=== PATIENT | female | born 1995 | race American Indian/Alaskan Native ===

== ENCOUNTER 2017-04-06 20:40 | Emergency (ER) | payer MEDICAID ==
[2017-04-06 20:51] VITALS: BP 144/77
--- NOTE | 2017-04-06 21:32 | EDM.PDOC ---
[id number] SINUSES,THROAT,SOB, [id number] Time Seen by Provider: 04/06/17 21:15 Source of Information: Reports: Patient History Limitations: Reports: No Limitations - History of Present Illness INITIAL COMMENTS - FREE TEXT/NARRATIVE: C/O sinus congestion and pressure past 3-4 days. No fever or chills, Green nasal drainage, SOB with congestion. Sore throat. Decreased appetite but drinking lots of fluid. Occasional cough with post nasal drainage. 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 OB/BYN History: 3rd Musculoskeletal History: Reports: None Neurological History: Reports: None Psychiatric History: Reports: None Endocrine/Metabolic History: Reports: Diabetes, Gestational Hematologic History: Reports: None Immunologic History: Reports: None Oncologic (Cancer) History: Reports: None Dermatologic History: Reports: None - Infectious Disease History Infectious Disease History: Reports: None - Past Surgical History Head Surgeries/Procedures: Reports: None Social & Family History - Family History Family Medical History: Noncontributory - Tobacco Use Smoking Status *Q: Never Smoker Years of Tobacco use: 2 Packs/Tins Daily: 0.2 Used Tobacco, but Quit: No Month Tobacco Last Used: Second Hand Smoke Exposure: No - Caffeine Use Caffeine Use: Reports: None - Alcohol Use Days Per Week of Alcohol Use: 0 - Recreational Drug Use Recreational Drug Use: No - Living Situation & Occupation Living situation: Reports: with Significant Other Occupation: Employed ED ROS GENERAL - Review of Systems Review Of Systems: See Below Constitutional: Reports: Decreased Appetite. Denies: Fever, Chills HEENT: Reports: Rhinitis, Sinus Problem, Throat Pain Respiratory: Reports: Shortness of Breath, Cough Cardiovascular: Reports: No Symptoms GI/Abdominal: Reports: No Symptoms : Reports: Other (14 weeks ) Musculoskeletal: Reports: No Symptoms Skin: Reports: No Symptoms Neurological: Reports: No Symptoms ED EXAM, GENERAL - Physical Exam Exam: See Below Exam Limited By: No Limitations General Appearance: Alert, Mild Distress Eye Exam: Bilateral Eye: EOMI Ear Exam: Bilateral Ear: TM normal Nose: Nasal Drainage (green) Throat/Mouth: Other (mild posterior pharnyx erythema) Head: Atraumatic, Normocephalic, Facial Tenderness (frontal and ethmoid sinus tenderness with palpation) Neck: Full Range of Motion, Lymphadenopathy (L), Lymphadenopathy (R) Respiratory/Chest: No Respiratory Distress, Decreased Breath Sounds (ases). No : Crackles, Rales, Rhonchi, Wheezing Cardiovascular: Normal Peripheral Pulses, Regular Rate, Rhythm, Other (tachy on admission decreased 90 with exam) Extremities: Normal Inspection Neurological: Alert, Oriented, Normal Cognition Skin Exam: Warm, Dry, Intact, Normal Color Course - Vital Signs Last Recorded V/S: Last Vital Signs Temp 98.9 F 04/06/17 20:48 Pulse 120 H 04/06/17 20:48 Resp 18 04/06/17 20:48 BP 144/77 H 04/06/17 20:48 Pulse Ox 97 04/06/17 20:48 - Orders/Labs/Meds Orders: Active Orders 24 hr Category Date Time Status CULTURE STREP A CONFIRMATION [RM] Stat Lab 04/06/17 20:47 Results STREP SCRN A RAPID W CULT CONF [] Stat Lab 04/06/17 20:47 Results Departure - Departure Time of Disposition: 21:29 Disposition: Home, Self-Care 01 Condition: good Clinical Impression: 14 weeks gestation of Sinusitis Qualifiers: Sinusitis location: pansinusitis Chronicity: acute Recurrence: not specified as recurrent Qualified Code(s): J01.40 - Acute pansinusitis, unspecified - Discharge Information Instructions: Sinusitis, Adult, [id number] Referrals: Hazel Nielsen MD [Primary Care Provider] - Forms: ED Department Discharge Additional Instructions: increase fluids humidification amoxicillin 500mg one three times daily for one week follow up if symptoms worsen may use tylenol for fever or discomfort avoid any use of ibuprofen - My Orders Last 24 Hours: My Active Orders 04/06/17 20:47 CULTURE STREP A CONFIRMATION [RM] Stat STREP SCRN A RAPID W CULT CONF [] Stat - Assessment/Plan Last 24 Hours: My Active Orders 04/06/17 20:47 CULTURE STREP A CONFIRMATION [RM] Stat STREP SCRN A RAPID W CULT CONF [RM] Stat
== END 2017-04-06 21:36 | disposition home or self-care (01) ==
LOC: DL.ED 20:40
DX: O99.52 Diseases of the respiratory system complicating childbirth (principal); J01.40 Acute pansinusitis, unspecified; Z3A.14 14 weeks gestation of pregnancy
CPT/HCPCS: 87081; 87430; 99283

== ENCOUNTER 2017-09-16 06:00 | Inpatient (IN) | payer MEDICAID ==
[2017-09-16] MEDS ORDERED: Sodium Chloride 0.9% 10 ML Syringe FLUSH PRN (06:56)
[2017-09-16] MEDS ORDERED: Acetaminophen 325 MG Tab PO PRN (06:56)
[2017-09-16] MEDS ORDERED: Methylergonovine 0.2 MG/1 ML Amp IM PRN (06:56)
[2017-09-16] MEDS ORDERED: Carboprost Tromethamine 250 MCG/1 ML Amp IM PRN (06:56)
[2017-09-16] MEDS ORDERED: Ondansetron 4 MG/2 ML SDV IV PRN (06:56)
[2017-09-16] MEDS ORDERED: Lidocaine 1% 30 ML SDV INJECT PRN (06:56)
[2017-09-16] MEDS ORDERED: Lactated Ringers 500 ML IV ONE (06:56)
[2017-09-16] MEDS ORDERED: Misoprostol 400 MCG (4 X 100 MCG TAB) RECTAL PRN (06:56)
[2017-09-16] MEDS: Lactated Ringers 1,000 ML IV SCH ×3 (07:09→10:35)
--- NOTE | 2017-09-16 08:16 | HP ---
CHIEF COMPLAINT: Increased force and frequency of contractions. HISTORY OF PRESENT ILLNESS: A 22-year-old, 3, para 2-0-0-2, currently at 37 and 2/7 weeks based on last menstrual period. The patient has gestational diabetes that is diet controlled. No other major risk factors. Reports contractions started around 03:00 this morning and have progressively gotten stronger. Around that time, she also had some bloody show which has continued. She has had good movement. No symptoms of preeclampsia. No other acute concerns have been noted. HISTORY: 1. On 10/21/2013, at 39 weeks 0 days' gestation, spontaneous vaginal delivery of her son Josemanuel. weight 3969 g with intrathecal for anesthesia, 6.5 hours of stage I, 19 minutes of stage II, had gestational diabetes. Delivery was performed by Dr. Castillo for Dr. Amato. 2. On 07/09/2016, at 38 weeks 4 days gestation, female , named Jennifer, spontaneous vaginal delivery, weighing 4026 g, female infant with intrathecal anesthesia. scores of 8 and 9. This is an induction of labor because of oligohydramnios on biophysical profile. She had gestational diabetes with this and was on medications as well. Delivery was again performed by Dr. Castillo for Lm Dash. LABS: Blood type O positive. She is rubella immune. Syphilis nonreactive. Hepatitis B, HIV, hepatitis C all negative. Gonorrhea and chlamydia negative. She was treated for clue cells in the first trimester. Quad screen was normal. Group B strep is negative. She has had her Tdap and influenza vaccines. records reviewed in their entirety. PAST MEDICAL HISTORY: 1. Allergy to nickel. 2. History of lip and ear piercing's. 3. History of breast mass removed. 4. History of chickenpox. 5. History of eczema. 6. History of gestational diabetes with pregnancies x3. 7. Irregular menstrual cycles. 8. Lichen simplex. 9. Obesity. 10.She has a couple of tattoos. PAST SURGICAL HISTORY: 1. Left-sided breast lumpectomy. 2. Laparoscopic cholecystectomy. FAMILY HISTORY: Father with hypertension and hyperlipidemia. Mother with cervical cancer in her late 20s. Maternal grandfather with diabetes. Paternal grandfather also with diabetes. Paternal grandfather's sister has cancer. Paternal aunt has diabetes and from complications of it. Breast cancer in several family members on the paternal side. Lung cancer in several family members on the paternal side, even in the nonsmokers. Liver cancer in a great aunt which was non-alcohol related. There are no defects, multiples, anesthesia problems, bleeding problems, clotting disorders, seizures, or cystic fibrosis. SOCIAL HISTORY: The patient is to Josemanuel. They have 2 children together already. The patient is a former smoker and quit in February of 2017. She is going to college to get her business administration degree. Her works for [employer]. They do have family in the area that is supportive. ALLERGIES: None. MEDICATIONS: vitamin 1 daily. REVIEW OF SYSTEMS: As noted under history of present illness. No fevers, chills, nausea, vomiting, diarrhea, constipation, chest pain, shortness of breath, skin rash, new headaches, or other concerns. PHYSICAL EXAMINATION: Vital Signs: Blood pressure 130/76, pulse of 86, temperature is 98.1. HEENT: Unremarkable. Heart: Regular without obvious murmur. Lungs: Clear to auscultation bilaterally. Abdomen: Gravid. [place] showing contractions approximately every 4 minutes. monitoring strip baseline heart rate 150 beats per minute with moderate [id number] variability. Accelerations are noted, overall category 1. Cervix is 5 cm dilated, 90% effaced. Bag of water was intact and ruptured with Amnio Hook and return of clear fluid noted. Baby is vertex. Extremities: No edema, erythema, or tenderness noted. Neurological: No obvious deficits. ASSESSMENT: 1. A 37 and 2/7 weeks intrauterine in active labor in a 3, para 2-0-0-2. 2. Gestational diabetes, diet controlled. 3. History of bacterial vaginosis in the first trimester. PLAN: The patient will be admitted to the hospital at this time. Continue with active labor management and anticipate vaginal delivery. She does have a history of one macrosomic infant, and we will see how she does, but has had successful deliveries in the past. [facility] /[id number] MONIKA
[2017-09-16] MEDS ORDERED: fentaNYL 100 MCG/2 ML SDV IVPUSH ONE (09:16)
[2017-09-16] MEDS ORDERED: fentaNYL 100 MCG/2 ML SDV ONE (09:40)
--- NOTE | 2017-09-16 10:09 | PCM.SN ---
- Free Text/Narrative Note: Intrathecal. Sitting position, sterile prep and drape. 1% lidocaine w bicarb for skinwheal to L2 L3 interspace x 2. Introducer x 3. Pos CSF, neg heme, neg parasthesia. 15 mcg PF sufenta, 35 mcg PF fentanyl, 0.4 m PF NS and 6 mg of 0.75 % PF bupivacaine injected after CSF aspiration. Pt to L lateral side. Procedure time [id number]
[2017-09-16] MEDS: Oxytocin/Normal Saline 30 UNIT/500 ML BAG IV SCH ×2 (12:06→19:19)
[2017-09-16] MEDS ORDERED: Zolpidem 5 MG Tab PO PRN (12:19)
[2017-09-16] MEDS ORDERED: Benzocaine/Menthol 20%-0.5% Spray 56 GM Canister TOP PRN (12:19)
[2017-09-16] MEDS ORDERED: Simethicone 80 MG Tab.Chew PO PRN (12:19)
[2017-09-16] MEDS: Ibuprofen 800 MG Tab PO PRN ×2 (13:42→23:33)
[2017-09-16] MEDS: Acetaminophen 325 MG Tab PO PRN (13:43)
[2017-09-16] MEDS ORDERED: fentaNYL 100 MCG/2 ML SDV ITHECAL ONE (16:13)
[2017-09-16] MEDS: Docusate Sodium 100 MG Cap PO PRN (21:50)
[2017-09-17] MEDS: Acetaminophen 325 MG Tab PO PRN ×2 (02:41→17:38)
[2017-09-17] MEDS: Docusate Sodium 100 MG Cap PO PRN ×2 (07:43→17:38)
[2017-09-17] MEDS: Ibuprofen 800 MG Tab PO PRN ×2 (07:43→17:38)
--- NOTE | 2017-09-17 08:08 | DEL ---
DATE: 09/16/2017 PREPROCEDURE DIAGNOSES: 1. A 37-2/7 weeks' based on last menstrual period and 8-week ultrasound. 2. 3, para 2-0-0-2. 3. Gestational diabetes, diet controlled. 4. Blood type O positive, rubella immune, and group B Streptococcus negative. 5. History of delivery of macrosomic infant. POSTPROCEDURE DIAGNOSES: 1. A 37-2/7 weeks' based on last menstrual period and 8-week ultrasound. 2. 3, para 3-0-0-3. 3. Gestational diabetes, diet controlled. 4. Blood type O positive, rubella immune, and group B Streptococcus negative. 5. Status post fast spontaneous vaginal delivery. 6. History of delivery of macrosomic . PROCEDURE PERFORMED: Spontaneous vaginal delivery. BRIEF HISTORY: A 22-year-old female with the above-listed diagnoses presented to the hospital with active labor and 5 cm of dilatation when she was checked in. Artificial rupture of membranes performed, and then later, she had an intrathecal for pain management. After about 8-1/2 hours total of stage I, she was complete and set up for delivery. Delivered after only 1 push and placenta after only about 2 minutes. PROCEDURE IN DETAIL: With the patient in dorsal lithotomy position, she delivered a viable male over intact perineum pushing through only 1 contraction. There was a nuchal cord, which I tried to reduce. The baby was coming too fast, so baby was somersaulted, and then the nuchal cord reduced. Baby was dried and stimulated. Mouth suctioned, and baby placed up on mother's abdomen. Cord clamping was delayed for approximately 1 minute, and then cord was cut, and cord blood sample obtained. Placenta then delivered readily by gentle cord traction and concomitant uterine massage. There was brisk bleeding noted. Pitocin was started, and bimanual massage was also used to help the uterus clamp down, which worked nicely. Placenta was then inspected and intact. Labia and vagina were inspected, and there were no lacerations. FINDINGS: Viable male infant; scores of 8 and 9; weight 3335 g, 7 pounds 5.8 ounces. Three-vessel umbilical cord. Normal placenta. DISPOSITION: Mother and baby to stay in the room and initiate bonding and at this time. COMPLICATIONS: None. ESTIMATED BLOOD LOSS: 400 mL. [facility] /[id number] MTDOctavia
[2017-09-17] MEDS ORDERED: Prenatal Multivitamin with Calcium/Folic Acid/Iron Tab PO SCH (09:00)
--- NOTE | 2017-09-17 09:54 | PCM.PNPP ---
- General Info Date of Service: 09/17/17 (PPD # 1 ) Functional Status: Reports: Pain Controlled, Tolerating Diet, Ambulating, Urinating - Review of Systems General: Reports: No Symptoms HEENT: Reports: No Symptoms Pulmonary: Reports: No Symptoms Cardiovascular: Reports: No Symptoms Gastrointestinal: Reports: No Symptoms Genitourinary: Reports: No Symptoms Musculoskeletal: Reports: No Symptoms Skin: Reports: No Symptoms Neurological: Reports: No Symptoms Psychiatric: Reports: No Symptoms - General Info Date of Service: 09/17/17 (PPD # 1 S/P ) - Patient Data Vital Signs - Most Recent: Last Vital Signs Temp 99.1 F 09/16/17 20:00 Pulse 85 09/16/17 20:00 Resp 18 09/16/17 20:00 BP 136/78 09/16/17 20:00 Pulse Ox 99 09/16/17 20:00 Weight - Most Recent: 207 lb Lab Results - Last 24 Hours: Laboratory Results - last 24 hr 09/17/17 Range/Units 06:30 WBC 8.3 (5.0-10.0) 10^3/uL RBC 3.66 L (4.2-5.4) 10^6/uL Hgb 10.9 L D (12.0-16.0) g/dL Hct 33.6 L (37.0-47.0) % MCV 91.8 D (80-100) fL MCH 29.8 (27.0-34.0) pg MCHC 32.4 L (33.0-35.0) g/dL Plt Count 189 (150-450) 10^3/uL Med Orders - Current: Current Medications Acetaminophen (Tylenol) 650 mg PO Q6H PRN PRN Reason: mild pain or fever Last Admin: 09/17/17 02:41 Dose: 650 mg Benzocaine/Menthol (Dermoplast Pain Relief Staples) 0 gm TOP Q4H PRN PRN Reason: Perineal comfort measures Docusate Sodium (Colace) 100 mg PO BID PRN PRN Reason: Constipation Last Admin: 09/17/17 07:43 Dose: 100 mg Oxytocin/Sodium Chloride (Pitocin In Ns 30 Unit/500 Ml) 30 unit in 500 mls @ 2 mls/hr IV TITRATE LYNN; 2 MUNITS/MIN PRN Reason: Protocol Last Titration: 09/16/17 19:21 Dose: 0 mls/hr Ibuprofen (Motrin) 800 mg PO Q8H PRN PRN Reason: Mild Pain or Fever Last Admin: 09/17/17 07:43 Dose: 800 mg Ondansetron HCl (Zofran) 4 mg IV Q4H PRN PRN Reason: Nausea/Vomiting Last Admin: 09/16/17 09:11 Dose: 4 mg Prenat Multivit/Human Resources Department Supervisor/Iron/Folic Ac ( Plus Iron) 1 each PO DAILY LYNN Last Admin: 09/17/17 09:40 Dose: 1 each Simethicone (Simethicone) 80 mg PO Q4H PRN PRN Reason: Gas Last Admin: 09/17/17 07:43 Dose: 80 mg Sodium Chloride (Saline Flush) 10 ml FLUSH ASDIRECTED PRN PRN Reason: Keep Vein Open Zolpidem Tartrate (Ambien) 5 mg PO BEDTIME PRN PRN Reason: Insomnia Discontinued Medications Acetaminophen (Tylenol) 650 mg PO Q4H PRN PRN Reason: Pain (Mild 1-3) and fever Carboprost Tromethamine (Hemabate Ds) 250 mcg IM ASDIRECTED PRN PRN Reason: HEMORRHAGE Fentanyl (Sublimaze) 50 mcg IVPUSH ONETIME ONE Stop: 09/16/17 09:17 Last Admin: 09/16/17 09:25 Dose: 50 mcg Fentanyl (Sublimaze) Confirm Administered Dose 100 mcg .ROUTE .STK-MED ONE Stop: 09/16/17 09:41 Last Admin: 09/16/17 10:33 Dose: Not Given Fentanyl (Sublimaze) 35 mcg ITHECAL .STK-MED ONE Stop: 09/16/17 16:14 Lactated Ringer's (Ringers, Lactated) 500 mls @ 999 mls/hr IV .BOLUS ONE Stop: 09/16/17 07:26 Last Admin: 09/16/17 19:08 Dose: Not Given Lactated Ringer's (Ringers, Lactated) 1,000 mls @ 125 mls/hr IV ASDIRECTED LYNN Last Admin: 09/16/17 10:35 Dose: 125 mls/hr Lidocaine HCl (Xylocaine-Mpf 1%) 10 ml INJECT ASDIRECTED PRN PRN Reason: Perineal Repair Methylergonovine Maleate (Methergine) 0.2 mg IM ASDIRECTED PRN PRN Reason: Hemorrhage Misoprostol (Cytotec) 800 mcg RECTAL ASDIRECTED PRN PRN Reason: Hemorrhage Sufentanil Citrate (Sufenta) Confirm Administered Dose 50 mcg .ROUTE .STK-MED ONE Stop: 09/16/17 09:42 Last Admin: 09/16/17 10:34 Dose: Not Given Sufentanil Citrate (Sufenta) 15 mcg ITHECAL .STK-MED ONE Stop: 09/16/17 16:14 - Infant Interaction Infant Disposition, : [place] in Room with Family Interaction: Holding Infant Feeding: Attempted ; Nursed Fair/Poor, Bottle Fed Infant, Encouraged to Breastfeed Support Person: - Recovery Exam Fundal Tone: Firm Fundal Level: At Umbilicus Fundal Placement: Midline Lochia Amount: Small Lochia Color: Rubra/Red Perineum Description: Intact, Minimal Bruising/Swelling Episiotomy/Laceration: None Bladder Status: Voiding Urinary Elimination: Voided - Exam General: Alert, Oriented, Cooperative, No Acute Distress HEENT: Pupils Equal, Pupils Reactive Neck: Supple Lungs: Clear to Auscultation, Normal Respiratory Effort Cardiovascular: Regular Rate, Regular Rhythm, No Murmurs GI/Abdominal Exam: Normal Bowel Sounds, Soft, Non-Tender, No Distention Extremities: Normal Inspection, Normal Range of Motion, Non-Tender, No Pedal Edema Skin: Warm, Dry, Intact Neurological: No New Focal Deficit, Normal Gait, Normal Speech Psy/Mental Status: Alert, Normal Affect, Normal Mood - Problem List Review Problem List Initiated/Reviewed/Updated: Yes - Assessment Assessment:: PPD # 1 S/P Doing well Bottle feeding will try to breastfeed - Plan Plan:: Discharge planning for today Ibuprofen 800 mg 1 tab tid po for apin Follow-up with Dr. Amato next week then at 6 week check-up.
[2017-09-17 17:41] VITALS: BP 131/64
--- NOTE | 2017-09-18 02:29 | DISCH ---
INDICATION FOR ADMISSION: Ms. Dash is a 22-year-old 3, para 2-0-0-2 female at 37-2/7 weeks' gestation, who reported to Labor and Delivery in active labor. She was 5 cm dilated. She did have gestational diabetes that was diet controlled through her . After artificial rupture of membranes, she had intrathecal for pain management, which worked quite well. Once she got to complete, she had a normal spontaneous vaginal delivery of a viable male weighing 7 pounds 6 ounces with scores of 8 at 1 minute and 9 at 5 minutes. She tolerated her recovery quite well. went to the nursery. No complications occurred throughout her hospital stay. She was afebrile. Vital signs were stable. She tolerated her diet well and ambulated quite well. She was discharged to home on day #1. LABORATORY AND DIAGNOSTIC STUDIES: 09/16/2017; WBC 10.3, hemoglobin 12.7, hematocrit 38.5, and platelet count 217,000. 09/17/2017; WBC 8.3, hemoglobin 10.9, hematocrit 33.6, and platelet count 189,000. DISCHARGE INSTRUCTIONS: 1. Discharged to home. 2. Follow up with Dr. Lm Gates next week or sooner if problems develop. 3. Follow up with Dr. mL Gates in 6 weeks for followup visit. 4. Discharge instructions including activity, followup, medications, diet, and wound care were discussed with the patient. She understands these and is willing to comply with these. 5. No douching, tampons, or intercourse for 6 weeks. 6. Motrin p.r.n. for discomfort. DISCHARGE DIAGNOSES: 1. 37-2/7 weeks' intrauterine . 2. History of gestational diabetes, diet controlled. 3. Active labor. 4. Artificial rupture of membranes. 5. Normal spontaneous vaginal delivery of a viable male infant weighing 7 pounds 6 ounces with scores 8 at 1 minute and 9 at 5 minutes. 6. Intrathecal anesthesia. 7. Acute anemia secondary to blood loss. [facility] /[id number]
== END 2017-09-17 18:00 | disposition home or self-care (01) | DRG 775 ==
LOC: DL.OBCHECK 06:00 → DL.OB 06:29 → OBSVTOIN 12:01
PROVIDERS: ADMIT Family Medicine; ATTEND Family Medicine
PROC: 10E0XZZ Delivery of Products of Conception, External Approach (ICD-10-PCS; principal; 2017-09-16)
PROC: 00HU33Z Insertion of Infusion Device into Spinal Canal, Percutaneous Approach (ICD-10-PCS; 2017-09-16)
PROC: 3E0R3BZ Introduction of Anesthetic Agent into Spinal Canal, Percutaneous Approach (ICD-10-PCS; 2017-09-16)
PROC: 10907ZC Drainage of Amniotic Fluid, Therapeutic from Products of Conception, Via Natural or Artificial Opening (ICD-10-PCS; 2017-09-16)
DX: O24.424 Gestational diabetes mellitus in childbirth, insulin controlled (principal); D62 Acute posthemorrhagic anemia; O69.81X0 Labor and delivery complicated by cord around neck, without compression, not applicable or unspecified; O99.02 Anemia complicating childbirth; Z3A.37 37 weeks gestation of pregnancy; Z37.0 Single live birth; Z87.891 Personal history of nicotine dependence; O99.214 Obesity complicating childbirth; E66.9 Obesity, unspecified; Z68.36 Body mass index [BMI] 36.0-36.9, adult
CPT/HCPCS: 01967; 36415; 59409; 82947; 85027; A9270-GY; J2405; J2590; J3010; J7120

== ENCOUNTER 2017-11-01 14:59 | Emergency (ER) | payer MEDICAID ==
--- NOTE | 2017-11-01 15:09 | EDM.PDOC ---
ED HPI GENERAL MEDICAL PROBLEM - General Chief Complaint: Gastrointestinal Problem Stated Complaint: stomach pain [id number] Time Seen by Provider: 11/01/17 15:09 Source of Information: Reports: Patient, RN, RN Notes Reviewed History Limitations: Reports: No Limitations - History of Present Illness INITIAL COMMENTS - FREE TEXT/NARRATIVE: Arrives from home by POV with c/o onset of mid-abdominal pain 3 days ago with nausea, and pain radiating to the Rt flank but it went away. Last night pt developed RLQ abdominal pain and diarrhea. Admits to dysuria and chills. Denies fever. Today pt developed nausea and vomiting also. No known sick contacts. Onset: Gradual Duration: Day(s): (3) Location: Reports: Abdomen Quality: Reports: Ache Severity: Moderate Improves with: Reports: None Worsens with: Reports: None Associated Symptoms: Reports: No Other Symptoms Abdominal Pain Score (Numeric/FACES): 5 - Related Data Allergies Allergy/AdvReac Type Severity Reaction Status Date / Time No Known Allergies Allergy Verified 09/16/17 07:15 Home Meds: Home Meds Pnv No.122/Iron/Folic Acid [ Multi Tablet] 1 tab PO DAILY 06/11/16 [ History] Past Medical History - Past Health History Medical/Surgical History: Denies Medical/Surgical History HEENT History: Reports: None Cardiovascular History: Reports: None Respiratory History: Reports: None Gastrointestinal History: Reports: None Genitourinary History: Reports: None FRIEND OF THE COURT History: Reports: Other OB/BYN History: 3rd Musculoskeletal History: Reports: None Neurological History: Reports: None Psychiatric History: Reports: None Endocrine/Metabolic History: Reports: Diabetes, Gestational Hematologic History: Reports: None Immunologic History: Reports: None Oncologic (Cancer) History: Reports: Other (See Below) Other Oncologic History: noncancerous mass removed off breast Dermatologic History: Reports: Eczema, Other (See Below) Other Dermatologic History: tattoos - Infectious Disease History Infectious Disease History: Reports: Chicken Pox - Past Surgical History Head Surgeries/Procedures: Reports: None GI Surgical History: Reports: Cholecystectomy Oncologic Surgical History: Reports: Lumpectomy Social & Family History - Family History Family Medical History: Noncontributory - Tobacco Use Smoking Status *Q: Never Smoker Years of Tobacco use: 2 Packs/Tins Daily: 0.2 Used Tobacco, but Quit: No Month Tobacco Last Used: Second Hand Smoke Exposure: No - Caffeine Use Caffeine Use: Reports: Soda - Alcohol Use Days Per Week of Alcohol Use: 0 - Recreational Drug Use Recreational Drug Use: No - Living Situation & Occupation Living situation: Reports: with Significant Other Occupation: Employed ED ROS GENERAL - Review of Systems Review Of Systems: ROS reveals no pertinent complaints other than HPI. ED EXAM, GI/ABD - Physical Exam Exam: See Below Exam Limited By: No Limitations General Appearance: Alert, WD/WN, No Apparent Distress, Obese Nose: Normal Inspection Throat/Mouth: Normal Inspection, Normal Lips, Normal Teeth, Normal Gums, Normal Oropharynx, Normal Voice, No Airway Compromise Head: Atraumatic, Normocephalic Neck: Normal Inspection, Supple, Non-Tender, Full Range of Motion Respiratory/Chest: No Respiratory Distress, Lungs Clear, Normal Breath Sounds, No Accessory Muscle Use, Chest Non-Tender Cardiovascular: Regular Rate, Rhythm, No Edema, Tachycardia GI/Abdominal Exam: Normal Bowel Sounds, Soft, No Distention, No Abnormal Bruit, Rebound (at RLQ), Tender (generalized mild abd. tenderness with acutely tender RLQ). No: Guarding, Rigid (Female) Exam: Deferred Rectal (Female) Exam: Deferred Back Exam: Normal Inspection, Full Range of Motion. No: CVA Tenderness (L), CVA Tenderness (R) Extremities: Normal Inspection Neurological: Alert, Oriented, No Motor/Sensory Deficits Psychiatric: Normal Affect, Normal Mood Skin Exam: Warm, Dry, Intact, Normal Color, No Rash Course - Vital Signs Last Recorded V/S: Last Vital Signs Temp 37.3 C 11/01/17 16:28 Pulse 86 11/01/17 16:28 Resp 16 11/01/17 16:28 BP 123/61 11/01/17 16:28 Pulse Ox 97 11/01/17 16:28 - Orders/Labs/Meds Orders: Active Orders 24 hr Category Date Time Status Peripheral IV Care [RC] . DIRECTED Care 11/01/17 15:27 Active Sodium Chloride 0.9% [Saline Flush] Med 11/01/17 15:27 Active 10 ml FLUSH ASDIRECTED PRN Peripheral IV Insertion Adult [OM.PC] Stat Oth 11/01/17 15:27 Ordered Medication Orders Sodium Chloride (Saline Flush) 10 ml FLUSH ASDIRECTED PRN PRN Reason: Keep Vein Open Last Admin: 11/01/17 15:44 Dose: 10 ml Labs: Laboratory Tests 11/01/17 11/01/17 11/01/17 Range/Units 15:25 15:25 15:28 WBC 12.7 H (5.0-10.0) 10^3/uL RBC 5.40 (4.2-5.4) 10^6/uL Hgb 15.6 D (12.0-16.0) g/dL Hct 47.8 H (37.0-47.0) % MCV 88.5 D (80-100) fL MCH 28.9 (27.0-34.0) pg MCHC 32.6 L (33.0-35.0) g/dL Plt Count 245 (150-450) 10^3/uL Neut % (Auto) 91.5 H (42.2-75.2) % Lymph % (Auto) 3.9 L (20.5-50.1) % Rooks % (Auto) 3.5 (2-8) % Eos % (Auto) 0.9 L (1.0-3.0) % Baso % (Auto) 0.2 (0.0-1.0) % Sodium (135-145) mmol/L Potassium (3.6-5.0) mmol/L Chloride (101-111) mmol/L Carbon Dioxide (21.0-31.0) mmol/L Anion Gap BUN (7-18) mg/dL Creatinine (0.6-1.3) mg/dL Est Cr Clr Drug Dosing mL/min Estimated GFR (MDRD) BUN/Creatinine Ratio Glucose (74-105) mg/dL Lactic Acid (0.5-2.2) mmol/L Calcium (8.4-10.2) mg/dl Total Bilirubin (0.2-1.0) mg/dL AST (10-42) IU/L ALT (10-60) IU/L Alkaline Phosphatase (42-121) IU/L Total Protein (6.7-8.2) g/dl Albumin (3.2-5.5) g/dl Globulin Albumin/Globulin Ratio Amylase (28-100) U/L Lipase (22-51) U/L Urine Color Yellow (YELLOW) Urine Appearance Cloudy (CLEAR) Urine pH 5.5 (5.0-9.0) Ur Specific [place] 1.025 (1.005-1.030) Urine Protein Negative (NEGATIVE) Urine Glucose (UA) Negative (NEGATIVE) Urine Ketones Negative (NEGATIVE) Urine Occult Blood Negative (NEGATIVE) Urine Nitrite Negative (NEGATIVE) Urine Bilirubin Negative (NEGATIVE) Urine Urobilinogen 0.2 (0.2-1.0) mg/dL Ur Leukocyte Esterase Small H (NEGATIVE) Urine RBC 0-5 /HPF Urine WBC 40-50 H (0-5/HPF) /HPF Ur Epithelial Cells Many H /HPF Amorphous Sediment Rare (0/HPF) /HPF Urine Bacteria Moderate H (0-FEW/HPF) /HPF Urine Mucus Few H /LPF Urine HCG, Qual Negative 11/01/17 11/01/17 Range/Units 15:28 15:55 WBC (5.0-10.0) 10^3/uL RBC (4.2-5.4) 10^6/uL Hgb (12.0-16.0) g/dL Hct (37.0-47.0) % MCV (80-100) fL MCH (27.0-34.0) pg MCHC (33.0-35.0) g/dL Plt Count (150-450) 10^3/uL Neut % (Auto) (42.2-75.2) % Lymph % (Auto) (20.5-50.1) % Rooks % (Auto) (2-8) % Eos % (Auto) (1.0-3.0) % Baso % (Auto) (0.0-1.0) % Sodium 136 (135-145) mmol/L Potassium 4.2 (3.6-5.0) mmol/L Chloride 103 (101-111) mmol/L Carbon Dioxide 23.0 (21.0-31.0) mmol/L Anion Gap 14.2 BUN 13 (7-18) mg/dL Creatinine 0.6 (0.6-1.3) mg/dL Est Cr Clr Drug Dosing 120.63 mL/min Estimated GFR (MDRD) > 60 BUN/Creatinine Ratio 21.66 Glucose 98 (74-105) mg/dL Lactic Acid 1.0 (0.5-2.2) mmol/L Calcium 8.9 (8.4-10.2) mg/dl Total Bilirubin 1.0 (0.2-1.0) mg/dL AST 35 (10-42) IU/L ALT 42 (10-60) IU/L Alkaline Phosphatase 75 (42-121) IU/L Total Protein 7.9 (6.7-8.2) g/dl Albumin 4.2 (3.2-5.5) g/dl Globulin 3.7 Albumin/Globulin Ratio 1.14 Amylase 70 (28-100) U/L Lipase 18 L (22-51) U/L Urine Color (YELLOW) Urine Appearance (CLEAR) Urine pH (5.0-9.0) Ur Specific [place] (1.005-1.030) Urine Protein (NEGATIVE) Urine Glucose (UA) (NEGATIVE) Urine Ketones (NEGATIVE) Urine Occult Blood (NEGATIVE) Urine Nitrite (NEGATIVE) Urine Bilirubin (NEGATIVE) Urine Urobilinogen (0.2-1.0) mg/dL Ur Leukocyte Esterase (NEGATIVE) Urine RBC /HPF Urine WBC (0-5/HPF) /HPF Ur Epithelial Cells /HPF Amorphous Sediment (0/HPF) /HPF Urine Bacteria (0-FEW/HPF) /HPF Urine Mucus /LPF Urine HCG, Qual Meds: Medications Generic Name Dose Route Start Last Admin Trade Name Freq PRN Reason Stop Dose Admin Sodium Chloride 10 ml 11/01/17 15:27 11/01/17 15:44 Saline Flush FLUSH 10 ml ASDIRECTED PRN Administration Keep Vein Open Discontinued Medications Generic Name Dose Route Start Last Admin Trade Name Freq PRN Reason Stop Dose Admin Ceftriaxone Sodium 1 gm 11/01/17 16:38 11/01/17 16:44 Rocephin IVPUSH 11/01/17 16:39 1 gm ONETIME ONE Administration Hydromorphone HCl 1 mg 11/01/17 15:27 11/01/17 15:39 Dilaudid IVPUSH 11/01/17 15:28 1 mg ONETIME ONE Administration Sodium Chloride 1,000 mls @ 999 mls/hr 11/01/17 15:26 11/01/17 15:40 Normal Saline IV 11/01/17 16:26 999 mls/hr .BOLUS ONE Administration Iopamidol 100 ml 11/01/17 15:28 11/01/17 16:00 Isovue-300 (61%) IVPUSH 11/01/17 15:29 75 ml ONETIME ONE Administration Ondansetron HCl 4 mg 11/01/17 15:26 11/01/17 15:39 Zofran IV 11/01/17 15:27 4 mg ONETIME ONE Administration - Radiology Interpretation Free Text/Narrative:: CT Abd/Pelvis: No acute findings, see Rad report. Departure - Departure Time of Disposition: 16:54 Disposition: Home, Self-Care 01 Condition: Good Clinical Impression: Gastroenteritis, UTI, Urinary tract infectious disease - Discharge Information Instructions: Viral Gastroenteritis, Adult, [id number], Urinary Tract Infection, Adult, [id number] Forms: ED Department Discharge Additional Instructions: Rx: Zofran 4mg Rx: Cephalexin 500mg Drink plenty of water. Eat bananas, rice, and yogurt. Avoid milk, cheese, ice cream, and fried or greasy foods. Follow up in clinic in 7 to 10 days for urine recheck. Return to ER if worse at any time. - My Orders Last 24 Hours: My Active Orders 11/01/17 15:27 Peripheral IV Care [RC] . DIRECTED Sodium Chloride 0.9% [Saline Flush] 10 ml FLUSH ASDIRECTED PRN Peripheral IV Insertion Adult [OM.PC] Stat - Assessment/Plan Last 24 Hours: My Active Orders 11/01/17 15:27 Peripheral IV Care [RC] . DIRECTED Sodium Chloride 0.9% [Saline Flush] 10 ml FLUSH ASDIRECTED PRN Peripheral IV Insertion Adult [OM.PC] Stat
[2017-11-01] MEDS ORDERED: Ondansetron 4 MG/2 ML SDV IV ONE (15:26)
[2017-11-01] MEDS ORDERED: Sodium Chloride 0.9% 1,000 ML IV ONE (15:26)
[2017-11-01] MEDS ORDERED: Sodium Chloride 0.9% 10 ML Syringe FLUSH PRN (15:27)
[2017-11-01] MEDS ORDERED: HYDROmorphone 1 MG/ML Syringe IVPUSH ONE (15:27)
[2017-11-01] MEDS ORDERED: Iopamidol 612 MG/ML 100 ML Bottle IVPUSH ONE (15:28)
[2017-11-01 15:57] LABS: CHLORIDE,CL 103 mmol/L (101-111); SODIUM,NA 136 mmol/L (135-145)
[2017-11-01 16:28] VITALS: BP 123/61
[2017-11-01] MEDS ORDERED: cefTRIAXone 1 GM Vial IVPUSH ONE (16:38)
== END 2017-11-01 17:10 | disposition home or self-care (01) ==
LOC: DL.ED 14:59
DX: K52.9 Noninfective gastroenteritis and colitis, unspecified (principal); N39.0 Urinary tract infection, site not specified
CPT/HCPCS: 36415; 74177; 80053; 81001; 81025; 82150; 83605; 83690; 85025; 96365; 96375; 99284; J0696; J1170; J2405; J7030; J7050; Q9967

== ENCOUNTER 2020-01-26 23:58 | Emergency (ER) | payer BC ==
[2020-01-27 00:08] VITALS: PULSE 96
[2020-01-27] MEDS ORDERED: LORazepam 2 MG/ML SDV IM ONE (00:12)
--- NOTE | 2020-01-27 00:17 | EDM.PDOCBH ---
ED HPI GENERAL MEDICAL PROBLEM - General Chief Complaint: Behavioral/Psych Stated Complaint: ANXIETY Time Seen by Provider: 01/27/20 00:13 Source of Information: Reports: Patient History Limitations: Reports: No Limitations - History of Present Illness INITIAL COMMENTS - FREE TEXT/NARRATIVE: onset chest tightness and SOB and numbness in feet, had similar Sx before from anxiety but usually can manage it but unable this time due to added stress with covid virus and work. - Related Data Allergies Allergy/AdvReac Type Severity Reaction Status Date / Time No Known Allergies Allergy Verified 06/14/19 22:05 Home Meds: Home Meds Ibuprofen 600 mg PO ASDIRECTED PRN 06/14/19 [History] Past Medical History - Past Health History Medical/Surgical History: Denies Medical/Surgical History HEENT History: Reports: None Cardiovascular History: Reports: None Respiratory History: Reports: None Gastrointestinal History: Reports: None Genitourinary History: Reports: None MANAGER LOGISTIC History: Reports: Other MANAGER LOGISTIC History: 3rd Musculoskeletal History: Reports: None Neurological History: Reports: None Psychiatric History: Reports: Anxiety Endocrine/Metabolic History: Reports: Diabetes, Gestational Hematologic History: Reports: None Immunologic History: Reports: None Oncologic (Cancer) History: Reports: Other (See Below) Other Oncologic History: noncancerous mass removed off breast Dermatologic History: Reports: Eczema, Other (See Below) Other Dermatologic History: tattoos - Infectious Disease History Infectious Disease History: Reports: Chicken Pox - Past Surgical History Head Surgeries/Procedures: Reports: None GI Surgical History: Reports: Cholecystectomy Oncologic Surgical History: Reports: Lumpectomy Social & Family History - Family History Family Medical History: Noncontributory - Tobacco Use Smoking Status *Q: Current Every Day Smoker Years of Tobacco use: 5 Packs/Tins Daily: 0.2 - Caffeine Use Caffeine Use: Reports: Coffee, Soda - Recreational Drug Use Recreational Drug Use: No - Living Situation & Occupation Living situation: Reports: with Significant Other Occupation: Employed ED ROS GENERAL - Review of Systems Review Of Systems: Comprehensive ROS is negative, except as noted in HPI. ED EXAM, BEHAVIORAL HEALTH - Physical Exam Exam: See Below Exam Limited By: No Limitations General Appearance: Alert, WD/WN, Anxious, Mild Distress, Moderate Distress, Other (upset) Eye Exam: Bilateral Eye: PERRL (pupils ER @ 4mm) Ears: Hearing Grossly Normal Throat/Mouth: Normal Voice, No Airway Compromise Head: Atraumatic Neck: Non-Tender, Full Range of Motion Respiratory/Chest: No Respiratory Distress Cardiovascular: Regular Rate, Rhythm GI/Abdominal: Soft, Non-Tender Neurological: Alert, Normal Cognition, Normal Gait, No Motor/Sensory Deficits, Oriented x 3 Psychiatric: Tearful, Agitated, Other (anxious) Skin Exam: Warm, Dry, Normal color COURSE, BEHAVIORAL HEALTH COMP - Course Vital Signs: Last Vital Signs Temp 36.3 C 01/27/20 00:03 Pulse 96 01/27/20 00:03 Resp 16 01/27/20 00:03 BP 134/77 01/27/20 00:18 Pulse Ox 96 01/27/20 00:03 Orders, Labs, Meds: Medications Discontinued Medications Generic Name Dose Route Start Last Admin Trade Name Freq PRN Reason Stop Dose Admin Lorazepam 1 mg 01/27/20 00:12 01/27/20 00:18 Ativan IM 01/27/20 00:13 1 mg ONETIME ONE Administration Re-Assessment/Re-Exam: s/p ativan = much better. Departure - Departure Time of Disposition: 00:46 Disposition: Home, Self-Care 01 Condition: Good Clinical Impression: Reaction, situational, acute, to stress - Discharge Information Forms: ED Department Discharge Additional Instructions: 1) rest and sleep 2) follow up at clinic rx givne; ativan 05mg bid prn x 6 Sepsis Event Note - Evaluation Sepsis Screening Result: No Definite Risk - Focused Exam Vital Signs: Vital Signs Temp Pulse Resp BP BP Pulse Ox 01/27/20 00:18 134/77 01/27/20 00:03 36.3 C 96 16 156/126 H 161/101 H 96 Date Exam was Performed: 01/27/20 Time Exam was Performed: 00:46
[2020-01-27 00:18] VITALS: BP 134/77
== END 2020-01-27 00:52 | disposition home or self-care (01) ==
LOC: DL.ED 23:58
DX: F43.0 Acute stress reaction (principal); F17.210 Nicotine dependence, cigarettes, uncomplicated
CPT/HCPCS: 96372; 99284; J2060

== ENCOUNTER 2021-09-04 05:49 | Observation (INO) | payer BC, MEDICAID ==
[2021-09-04] MEDS ORDERED: Terbutaline 1 MG/ML SDV SUBCUT ONE (06:22)
[2021-09-04 10:55] VITALS: BP 105/65; PULSE 98
--- NOTE | 2021-09-04 11:49 | OR ---
DATE: 09/04/2021 PREPROCEDURE DIAGNOSIS: The patient found to be vertex. PROCEDURE: External cephalad version not performed as the patient's baby was spontaneously vertex. Note being dictated essentially to verify that this was not performed despite patient being prepped. When she did present to the hospital this morning, baby was oblique with the head in the maternal right lower quadrant. However, after she was prepared, Dr. Adam and I were ready to proceed with the procedure. Ultrasound then verified baby was indeed cephalic. [facility] /[id number]
--- NOTE | 2021-09-04 13:08 | HP ---
CHIEF COMPLAINT: Breech presentation, unstable lie. HISTORY OF PRESENT ILLNESS: Annelise is 26-year-old G4, P3-0-0-3 at 36-4/7 weeks gestational age, presenting for external cephalic version for breech presentation. OBSTETRICAL HISTORY: Gestational diabetes with all 3 prior pregnancies. Vaginal deliveries. She was on glyburide for the first and second . Diet and exercise control during third . She quit smoking after finding out she was . Quit drinking alcohol as well. Third delivered at 37 weeks and 2 days. Pushed through 1 contraction. Second mild oligohydramnios, delivered at 38 weeks and 4 days. First delivered at 39 weeks. Intrathecal anesthesia with all prior deliveries. LABORATORY DATA: Hemoglobin 12.0, platelets 277. GBS negative. Gonorrhea and Chlamydia negative. Urine drug screen negative. Hepatitis C negative. Antibody screen negative. HIV negative. Rubella immune. Syphilis negative. Quad screen negative. PAST MEDICAL HISTORY: Significant for obesity, noncancerous left breast mass removed, eczema, and history of atypical squamous cells of undetermined significance on Pap in 2015, repeat Pap has been negative. PAST SURGICAL HISTORY: In 2013, left breast lumpectomy. In 2013, laparoscopic cholecystectomy. FAMILY HISTORY: Significant for cervical cancer in mother. Hypertension and dyslipidemia in father. Diabetes in maternal and paternal grandfathers. Several family members on both maternal and paternal sides with breast cancer, lung cancer, and liver cancer. No history of defects, multiple births, anesthesia problems, or bleeding or clotting disorders. SOCIAL HISTORY: Recently graduated as [employer] in 05/2021 from [employer]. Father of baby is Josemanuel who works with the [employer]. They live in [place] with Annelise's mother, father, and brother. REVIEW OF SYSTEMS: Denies fevers, chills, headache, vision changes, chest pain, shortness of breath, right upper quadrant pain, nausea, vomiting, contractions, leakage of fluid, vaginal bleeding, and extremity edema. MEDICATIONS: Include metronidazole, metformin, glyburide, ferrous sulfate, and vitamin. ALLERGIES: No known drug allergies. OBJECTIVE: General: The patient is a well-appearing 26-year-old female. Vital Signs: Blood pressure 131/80 and 105/65, temperature 98.7 F, heart rate98, and respiratory rate 16. HEENT: Grossly unremarkable. Heart: Regular rate and rhythm without murmur. Lungs: Clear to auscultation bilaterally. Abdomen: Gravid, soft, and nontender. Pelvis: Fetus presents in right oblique lie with heart rate of 130, moderate variability accelerations noted, and category 1 tracing. [place] reveals contractions every 3 to 5 minutes. No cervical exam done. Extremities: Without lower extremity edema. Skin: Warm, dry, and intact. Neurologic: Nonfocal. ASSESSMENT: 1. Encounter for external cephalic version. 2. Breech presentation. 3. G4, P3-0-0-3. 4. A 36 weeks and 4/7 days gestational age. 5. Gestational diabetes controlled on oral hypoglycemic drug. 6. Lab tests confirmed positive COVID-19 on 08/03/2021, resolved. PLAN: The patient found to be right oblique lie upon presentation by bedside ultrasound. Plan to complete version. Patient admitted. Discussed with patient that at 36 weeks and 4/7 gestational age, we would not start induction unless rupture of membranes occurs as a result of version. Counseled fetus could move back out of cephalic presentation. We will continue to confirm lie. CBC, type and screen drawn. Nitrous oxide available. Terbutaline IM at 20 minutes prior to planned start time. Ultrasound showed complete cephalic lie. Version not attempted. Confirmed reactive heart tones. All questions answered. The patient in agreement with plan. Annelise will continue to complete nonstress test. Keep next routine appointment. Return sooner if fever, chills, headaches, vision changes, chest pain, shortness of breath, right upper quadrant pain, nausea, vomiting, contractions, leakage of fluid, vaginal bleeding, or extremity edema. This patient was seen today by myself and Dr. Amato. Assessment and plan are under the advisement of Dr. Amato. Patient seen and examined. Agree with note as written on my behalf by ERROL Herrera. 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 MODL /[id number] MTDOctavia
--- NOTE | 2021-09-04 16:49 | OBOUT ---
DATE: 09/04/2021 STUDY: NST report. INDICATION FOR NST: Pre and post external cephalad version. The procedure was actually not necessary because the patient was oblique when she presented, but then head down when we went to do the actual procedure. REPORT: Baseline heart rate 145 beats per minute. Moderate [id number] variability. Accelerations noted. [place] shows occasional contractions. INTERPRETATION: Category 1 reassuring and reactive NST. [facility] /[id number]
== END 2021-09-04 09:00 | disposition home or self-care (01) ==
LOC: DL.OBCHECK 05:49 → DL.OB 05:50
PROVIDERS: ADMIT Family Medicine; ATTEND Family Medicine
DX: O32.1XX0 Maternal care for breech presentation, not applicable or unspecified (principal); O24.415 Gestational diabetes mellitus in pregnancy, controlled by oral hypoglycemic drugs; Z86.16 Personal history of COVID-19; Z3A.36 36 weeks gestation of pregnancy; Z79.899 Other long term (current) drug therapy
CPT/HCPCS: 36415; 59025; 59412; 85025; 86850; 86900; 86901; J3105

== ENCOUNTER 2021-09-10 20:01 | Observation (INO) | payer MEDICAID ==
[2021-09-10] MEDS ORDERED: Lactated Ringers 1,000 ML IV ONE (20:53)
[2021-09-10] MEDS ORDERED: hydrOXYzine HCl 25 MG Tab PO ONE (20:53)
[2021-09-10] MEDS ORDERED: Sodium Chloride 0.9% 10 ML Syringe FLUSH PRN (21:00)
--- NOTE | 2021-09-10 22:01 | PCM.LDHP ---
<Triny Torrez - Last Filed: 09/10/21 21:56> L&D History of Present Illness - General Date of Service: 09/10/21 Admit Problem/Dx: Admission Diagnosis/Problem Admission Diagnosis/Problem 09/10/21 21:56 Pelvic pain with contractions since 5:00PM Source of Information: Patient, Old Records - History of Present Illness Introduction:: 26yo -0-03 at 37w3d presents to L&D with regular contractions and increased pelvic pressure since 5:00PM. Pelvic pressure increasing in severity over the past week. No fever, Nausea/vomiting, headache, vaginal discharge, or vaginal bleeding. She completed her last dose of Flagyl for Bacterial Vaginosis yesterday. Denies dysuria. complicated by 1) Gestational Diabetes, currently on Metformin 500mg daily. Two hour post prandial glucoses 120-150s. Fasting glucose this morning 86. 2) Unstable lie - Breech to vertex position without intervention on 09/04/21. Planned external version canceled. 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 Monoclonal Antibody infusion in [place] . Obstetric history: G1 - Gestational Diabetes tx with Glyburide. Vaginal delivery G2 - Gestational Diabetes tx with Glyburide. Vaginal delivery G3 - Gestational Diabetes, diet and exercise controlled. Vaginal delivery at 37w 1d. G4 (current) - Stopped smoking and alcohol. Gestational Diabetes on Metformin. * labs: Hgb 12.0, Plt 277. GBS negative. Hep C negative. HIV Negative. Rubella immune. Syphilis negative. Quad screen negative. Chlamydia/Gonorrhea negative. UDS negative. Surgical hx, PMHx, Allergies unchanged from last admission. monitoring - Contractions every 6-7 minutes. Category 1. Moderate variability. Fetus initially breech with head in maternal LUQ, easily converted to Vertex. Location, : Reports: Abdomen - Related Data Allergies/Adverse Reactions: Allergies Allergy/AdvReac Type Severity Reaction Status Date / Time No Known Allergies Allergy Verified 09/10/21 20:54 Home Medications: Home Meds Vit with Ca/FA/Iron [ Plus Iron] 1 tab PO DAILY 08/31/21 [History] metFORMIN [Glucophage] 500 mg PO DAILY 08/31/21 [History] Past Medical History - Past Health History Medical/Surgical History: Denies Medical/Surgical History HEENT History: Reports: None Cardiovascular History: Reports: None Respiratory History: Reports: None Gastrointestinal History: Reports: None Genitourinary History: Reports: None 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: , Other (See Below) Other OB/BYN History: bv, abnormal pap Musculoskeletal History: Reports: None Neurological History: Reports: None Psychiatric History: Reports: Anxiety Endocrine/Metabolic History: Reports: Diabetes, Gestational Hematologic History: Reports: Anemia Immunologic History: Reports: None Oncologic (Cancer) History: Reports: Other (See Below) Other Oncologic History: noncancerous mass removed off lt breast Dermatologic History: Reports: Eczema, Other (See Below) Other Dermatologic History: tattoos - Infectious Disease History Infectious Disease History: Reports: Chicken Pox - Past Surgical History Head Surgeries/Procedures: Reports: None GI Surgical History: Reports: Cholecystectomy Oncologic Surgical History: Reports: Lumpectomy Social & Family History - Family History Family Medical History: No Pertinent Family History - Tobacco Use Tobacco Use Status *Q: Former Tobacco User - Caffeine Use Caffeine Use: Reports: None - Alcohol Use Alcohol Use History: Yes Alcohol Use Frequency: Not Used in Over 6 Months - Living Situation & Occupation Living situation: Reports: with Significant Other Occupation: Employed H&P Review of Systems - Review of Systems: Review Of Systems: Comprehensive ROS is negative, except as noted in HPI. L&D Exam - Exam Exam: See Below - Vital Signs Vital Signs: Last Vital Signs Temp 98.1 F 09/10/21 20:15 Pulse 105 H 09/10/21 20:15 Resp 16 09/10/21 20:15 BP 135/75 09/10/21 20:15 Pulse Ox - OB Specific Contraction Intensity: Mild to Moderate Movement: Active Heart Tones: Present Heart Tones per Min: 150 Heart Rate (FHR) Variability: Moderate (6-25 bpm) - Child Score Child Score Consistency: Soft Child Score Effacement: 31-50% Child Score Dilation: 1-2 cm Child Score Infant's Station: -3 - Exam General: Alert, Oriented HEENT: Conjunctiva Clear, Hearing Intact Lungs: Clear to Auscultation, Normal Respiratory Effort Cardiovascular: Regular Rate, Regular Rhythm, Normal S1, Normal S2 Skin: Warm, Dry Neurological: Cranial Nerves Intact Psychiatric: Alert - Problem List (1) Unstable lie, antepartum SNOMED Code(s): 78525840, 90253746 ICD Code: O32.0XX0 - MATERNAL CARE FOR UNSTABLE LIE, NOT APPLICABLE OR UNSP Status: Acute Priority: High Problem Details: Fetus presented in breech position with head in maternal LUQ. Easily turned into vertex position. Qualifiers: Fetus number: single or unspecified fetus Qualified Code(s): O32.0XX0 - Ma ternal care for unstable lie, not applicable or unspecified (2) contractions SNOMED Code(s): 731805548 ICD Code: O47.00 - FALSE LABOR BEFORE 37 COMPLETED WEEKS OF GEST, UNSP TRI Status: Acute Priority: Medium (3) with 37 or more completed weeks gestation SNOMED Code(s): 96586600 ICD Code: [id number] - Status: Acute (4) Gestational diabetes SNOMED Code(s): 38530265 ICD Code: O24.419 - GESTATIONAL DIABETES MELLITUS IN , UNSP CONTROL Status: Acute (5) Gestational diabetes mellitus (GDM) affecting fourth SNOMED Code(s): 01438408379245 ICD Code: O24.419 - GESTATIONAL DIABETES MELLITUS IN , UNSP CONTROL Status: Acute Priority: High Problem List Initiated/Reviewed/Updated: Yes Orders Last 24hrs: Active Orders 24 hr Category Date Time Status OB Check [OM.PC] Click to Edit Care 09/10/21 20:53 Ordered Assessment/Plan Comment:: Admit to observation Vistaril and IVF therapy administered UA pending Metformin 500mg with breakfast Recheck cervix if increased pelvic pressure or frequency of contractions, if not will check in morning. Repeat external version and manage labor as appropriate. <Hazel Nielsen - Last Filed: 09/13/21 09:43> L&D History of Present Illness - General Admit Problem/Dx: Patient Status Order with Admit Dx/Problem 09/10/21 23:08 Admission Status [Patient Status] [ADT] Routine Admission Diagnosis/Problem Admission Diagnosis/Problem L&D Exam - Vital Signs Vital Signs: Last Vital Signs Temp 97.6 F 09/11/21 07:54 Pulse 84 09/11/21 07:54 Resp 16 09/10/21 20:15 BP 122/64 09/11/21 07:54 Pulse Ox Assessment/Plan Comment:: Patient seen and examined with Dr. Torrez. Agree with note as written on my behalf. -[facility] 09/13/2021 0944.
[2021-09-11] MEDS ORDERED: metFORMIN 500 MG Tab PO SCH (08:00)
[2021-09-11 08:43] VITALS: BP 122/64; PULSE 84
== END 2021-09-11 08:30 | disposition home or self-care (01) ==
LOC: DL.OBCHECK 20:01 → DL.OB 21:38
PROVIDERS: ADMIT Family Medicine; ATTEND Family Medicine
DX: O47.00 False labor before 37 completed weeks of gestation, unspecified trimester (principal); O32.0XX0 Maternal care for unstable lie, not applicable or unspecified; O24.415 Gestational diabetes mellitus in pregnancy, controlled by oral hypoglycemic drugs; Z79.84 Long term (current) use of oral hypoglycemic drugs
CPT/HCPCS: 59025; 81001; A9270; G0378; J7120

== ENCOUNTER 2021-09-17 07:51 | Inpatient (IN) | payer BC, MEDICAID ==
[2021-09-17] MEDS ORDERED: fentaNYL 100 MCG/2 ML SDV IVPUSH PRN (08:00)
[2021-09-17] MEDS ORDERED: ePHEDrine 50 MG/ML SDV IVPUSH PRN (08:00)
[2021-09-17] MEDS ORDERED: Promethazine 25 MG/ML SDV IM PRN (08:00)
[2021-09-17] MEDS ORDERED: Ondansetron 4 MG/2 ML SDV IVPUSH PRN ×3 (08:00→09:33)
[2021-09-17] MEDS ORDERED: Lactated Ringers 500 ML IV SCH ×2 (08:00)
[2021-09-17] MEDS ORDERED: Famotidine 20 MG/2 ML SDV IVPUSH PRN (08:00)
[2021-09-17] MEDS ORDERED: Lactated Ringers 1,000 ML IV ONE ×2 (08:00→09:33)
[2021-09-17] MEDS ORDERED: Penicillin G Potassium 5 MILLUNITS in Sodium Chloride 0.9% 100 ML IV ONE (08:00)
[2021-09-17] MEDS ORDERED: Lidocaine 1% 30 ML SDV INJECT PRN ×2 (08:00→09:33)
[2021-09-17] MEDS ORDERED: Tranexamic Acid 1,000 MG in Sodium Chloride 0.9% 100 ML IV PRN ×3 (08:00→19:19)
[2021-09-17] MEDS ORDERED: Oxytocin/Normal Saline 30 UNIT/500 ML BAG IV SCH ×2 (08:00→09:45)
[2021-09-17] MEDS ORDERED: Carboprost Tromethamine 250 MCG/1 ML Amp IM PRN ×2 (08:00→09:33)
[2021-09-17] MEDS ORDERED: Naloxone 2 MG/2 ML Syringe IVPUSH PRN (08:00)
[2021-09-17] MEDS ORDERED: Penicillin G Potassium 3 MILLUNITS in Sodium Chloride 0.9% 100 ML IV SCH (08:00)
[2021-09-17] MEDS ORDERED: Methylergonovine 0.2 MG/1 ML Amp IM PRN ×2 (08:00→09:33)
[2021-09-17] MEDS ORDERED: Misoprostol 400 MCG (4 X 100 MCG TAB) RECTAL PRN ×3 (08:00→19:19)
[2021-09-17] MEDS ORDERED: Sodium Chloride 0.9% 10 ML Syringe FLUSH PRN ×2 (08:00→09:33)
[2021-09-17] MEDS ORDERED: Acetaminophen 325 MG Tab PO PRN ×2 (09:33→19:19)
[2021-09-17] MEDS ORDERED: Lactated Ringers 1,000 ML IV SCH (09:45)
[2021-09-17] MEDS: Lactated Ringers 1,000 ML IV SCH ×3 (12:31→17:20)
[2021-09-17] MEDS: Oxytocin/Normal Saline 30 UNIT/500 ML BAG IV SCH ×2 (12:31→21:00)
[2021-09-17] MEDS ORDERED: EPINEPHrine 1 MG/ML SDV ONE ×3 (14:20→17:12)
[2021-09-17] MEDS ORDERED: fentaNYL 100 MCG/2 ML SDV ITHECAL ONE ×2 (14:20→17:10)
[2021-09-17] MEDS ORDERED: fentaNYL 100 MCG/2 ML SDV ONE ×2 (14:27→17:11)
[2021-09-17] MEDS ORDERED: Simethicone 80 MG Tab.Chew PO PRN (19:19)
[2021-09-17] MEDS ORDERED: Benzocaine/Menthol 20%-0.5% Spray 78 GM Cannister TOP PRN (19:19)
[2021-09-17] MEDS: Ibuprofen 800 MG Tab PO PRN (20:58)
[2021-09-17] MEDS: Docusate Sodium 100 MG Cap PO PRN (20:58)
[2021-09-17] MEDS: Acetaminophen 325 MG Tab PO PRN (22:05)
[2021-09-18] MEDS: Ibuprofen 800 MG Tab PO PRN ×2 (04:41→17:12)
[2021-09-18] MEDS: Docusate Sodium 100 MG Cap PO PRN ×2 (08:21→17:14)
[2021-09-18] MEDS: Acetaminophen 325 MG Tab PO PRN (08:21)
[2021-09-18] MEDS ORDERED: Prenatal Multivitamin with Calcium/Folic Acid/Iron Tab PO SCH (09:00)
[2021-09-18] MEDS ORDERED: EPINEPHrine 1 MG/ML SDV ONE (17:10)
[2021-09-18 21:28] VITALS: BP 120/72; PULSE 84
== END 2021-09-18 20:30 | disposition home or self-care (01) | DRG 560 ==
LOC: DL.OB 07:51 → OBSVTOIN 19:04 → PREINTOOBSV 21:54
PROVIDERS: ADMIT Family Medicine; ATTEND Family Medicine
PROC: 10E0XZZ Delivery of Products of Conception, External Approach (ICD-10-PCS; principal; 2021-09-17)
PROC: 10907ZC Drainage of Amniotic Fluid, Therapeutic from Products of Conception, Via Natural or Artificial Opening (ICD-10-PCS; 2021-09-17)
PROC: 3E0R3BZ Introduction of Anesthetic Agent into Spinal Canal, Percutaneous Approach (ICD-10-PCS; 2021-09-17)
PROC: 00HU33Z Insertion of Infusion Device into Spinal Canal, Percutaneous Approach (ICD-10-PCS; 2021-09-17)
DX: O24.425 Gestational diabetes mellitus in childbirth, controlled by oral hypoglycemic drugs (principal); Z37.0 Single live birth; Z3A.38 38 weeks gestation of pregnancy; O32.0XX0 Maternal care for unstable lie, not applicable or unspecified
CPT/HCPCS: 01967; 36415; 59409; 82947; 85027; A9270-GY; J0171; J2405; J2590; J3010; J7120

== ENCOUNTER 2021-10-08 10:47 | Emergency (ER) | payer BC, MEDICAID ==
[2021-10-08 11:04] VITALS: BP 125/93; PULSE 78
[2021-10-08 11:50] LABS: ANION GAP 16.3 mEq/L (7-13); CHLORIDE,CL 102 mmol/L (98-107); SODIUM,NA 141 mmol/L (136-145)
[2021-10-08] MEDS ORDERED: Ketorolac 30 MG/ML SDV IM ONE (12:29)
== END 2021-10-08 15:19 | disposition home or self-care (01) ==
LOC: DL.ED 10:47
DX: O99.893 Other specified diseases and conditions complicating puerperium (principal); N20.2 Calculus of kidney with calculus of ureter; Z86.16 Personal history of COVID-19
CPT/HCPCS: 36415; 74176; 76770; 80053; 81001; 81025; 85025; 87086; 96372; 99284; J1885; 99285

== ENCOUNTER 2024-11-06 20:09 | Emergency (ER) | payer BC, MEDICAID ==
[2024-11-06 20:56] VITALS: PULSE 103
[2024-11-06] MEDS: Ketorolac 30 MG/ML SDV IM ONE (20:58)
[2024-11-06] MEDS: Orphenadrine 60 MG/2 ML Inj IM ONE (20:58)
[2024-11-06 21:43] LABS: APPEARANCE,URINE CLEAR (CLEAR); BILIRUBIN,URINE NEGATIVE (NEGATIVE); COLOR,URINE YELLOW (YELLOW); GLUCOSE,URINE NEGATIVE (NEGATIVE); KETONES,URINE NEGATIVE (NEGATIVE); LEUKOCYTE ESTERASE,URINE NEGATIVE (NEGATIVE); NITRITE,URINE NEGATIVE (NEGATIVE); OCCULT BLOOD,URINE NEGATIVE (NEGATIVE); PROTEIN,URINE NEGATIVE (NEGATIVE); UROBILINOGEN,URINE 0.2 mg/dL (0.2-1.0)
[2024-11-06 21:57] LABS: BASOPHILS PERCENT AUTO 0.5 % (0.0-1.0); EOSINOPHILS PERCENT AUTO 0.8 % (1.0-3.0); HEMATOCRIT 44.6 % (37.0-47.0); HEMOGLOBIN 14.8 g/dL (12.0-16.0); LYMPHOCYTES PERCENT AUTO 22.1 % (20.5-50.1); MEAN CORPUSCULAR HEMOGLOBIN 28.7 pg (27.0-34.0); MEAN CORPUSCULAR HGB CONC 33.2 g/dL (33.0-35.0); MEAN CORPUSCULAR VOLUME 86.6 fL (80-100); NEUTROPHILS PERCENT AUTO 71.6 % (42.2-75.2); PLATELET COUNT,PLT 279 10^3/uL (150-450); RED BLOOD CELL COUNT 5.15 10^6/uL (4.2-5.4); WHITE BLOOD CELL COUNT,WBC 9.6 10^3/uL (5.0-10.0)
[2024-11-06 22:03] VITALS: BP 132/86
[2024-11-06 22:18] LABS: A/G RATIO 0.74; ALBUMIN 3.2 g/dL (3.4-5.0); ANION GAP 13.3 mEq/L (7-13); BILIRUBIN TOTAL 0.2 mg/dL (0.2-1.0); BUN/CREATININE RATIO 11.2 (No establ ref range); CALCIUM 9.2 mg/dL (8.5-10.1); CREATININE 0.89 mg/dL (0.55-1.02); EST CRCL DRUG DOSING (CG) 76.46 mL/min; POTASSIUM,K 4.3 mmol/L (3.5-5.1); PROTEIN TOTAL,TP 7.5 g/dL (6.4-8.2)
[2024-11-06] MEDS: Dexamethasone 4 MG/ML SDV IM ONE (22:45)
== END 2024-11-06 22:51 | disposition home or self-care (01) ==
LOC: DL.ED 20:09
DX: M54.42 Lumbago with sciatica, left side (principal); Z86.16 Personal history of COVID-19; Z90.49 Acquired absence of other specified parts of digestive tract; F17.210 Nicotine dependence, cigarettes, uncomplicated
CPT/HCPCS: 36415; 72131; 80053; 81003; 81025; 85025; 96372; 99284; J1100; J1885; J2360

== ENCOUNTER 2025-03-30 11:32 | Emergency (ER) | payer BC, OTHER ==
[2025-03-30 11:52] VITALS: BP 157/109; PULSE 104
== END 2025-03-30 13:13 | disposition home or self-care (01) ==
LOC: DL.ED 11:32
DX: S90.31XA Contusion of right foot, initial encounter (principal); X50.1XXA Overexertion from prolonged static or awkward postures, initial encounter; Z86.16 Personal history of COVID-19; Z90.49 Acquired absence of other specified parts of digestive tract
CPT/HCPCS: 73620-RT; 99282; 99283